=== PATIENT | male | born 1935 | race Caucasian/White ===

== ENCOUNTER 2019-02-04 14:06 | Observation (INO) | payer SELFPAY ==
[2019-02-04 14:13] VITALS: BP 124/82; PULSE 63; RESP 25; TEMP 36.5; O2SAT 93; BMI 27.8
[2019-02-04 15:00] VITALS: BP 120/79; PULSE 60; RESP 19; O2SAT 94
[2019-02-04] MEDS: BACITRACIN OINT 0.9 GM PCKT 4 APPLIC TOP (15:01)
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
--- NOTE | 2019-02-04 15:41 | DI.CT.S_ITS ---
PROCEDURE: CT HEAD/BRAIN WO CON INDICATIONS: trauma/fall TECHNIQUE: Noncontrast 4.5 mm thick angled axial sections acquired from the foramen magnum to the vertex, with coronal and sagittal reformats. For radiation dose reduction, the following was used: automated exposure control, adjustment of mA and/or kV according to patient size. COMPARISON: None. FINDINGS: Image quality: Excellent. CSF spaces: Basal cisterns are patent. No extra-axial fluid collections. The ventricles are symmetric in size and shape. Brain: No intracranial bleeds or masses. Moderate sized chronic left middle through artery distribution infarcts are present. Small chronic left cerebellar infarct is present. There is Wallerian degeneration of the left cerebral peduncle. There is cerebral volume loss for age, with resultant ventricular and sulcal prominence. There are periventricular and deep white matter chronic small vessel ischemic changes. There is intracranial internal carotid artery atherosclerosis. Skull and face: Calvarium and visualized facial bones appear intact, without suspicious lesions. Sinuses: Visualized sinuses and mastoids are clear. IMPRESSION: 1. No acute intracranial abnormality. 2. Chronic left-sided infarcts. Dictated by: Hazel Morton M.D. on 02/04/2019 at 16:24 Approved by: Hazel Morton M.D. on 02/04/2019 at 16:26
--- NOTE | 2019-02-04 15:41 | DI.RAD.S_ITS ---
PROCEDURE: XR HIP W PEL IF DONE LT 2V INDICATIONS: truama, bruise/pain to Left hip TECHNIQUE: AP pelvis with lateral view(s) of the left hip(s). COMPARISON: None. FINDINGS: Bones: No fractures or dislocations. Pelvic ring appears intact. No suspicious bony lesions. Mild joint space narrowing and periarticular osteophyte formation at the hip joints bilaterally. Soft tissues: The visualized bowel gas pattern is normal. No suspicious soft tissue calcifications. IMPRESSION: 1. Bilateral posterior arthritis. 2. No acute fracture. No osseous lesion. If symptoms and/or clinical suspicion for pathology persist, further assessment with repeat, or advanced imaging (e.g., CT, MRI, or bone scan) may be helpful for further assessment. Dictated by: Hazel Morton M.D. on 02/04/2019 at 16:44 Approved by: Hazel Morton M.D. on 02/04/2019 at 16:45
--- NOTE | 2019-02-04 15:44 | DI.CT.S_ITS ---
PROCEDURE: CT CERVICAL SPINE WO CON INDICATIONS: trauma/fall TECHNIQUE: Noncontrast 3 mm thick sections acquired from the skull base to the T4 level. Sagittal and coronal reformats were then constructed. For radiation dose reduction, the following was used: automated exposure control, adjustment of mA and/or kV according to patient size. COMPARISON: None. FINDINGS: Image quality: Excellent. Bones: No fractures or dislocations. Visualized superior ribs are intact. Multilevel degenerative disc and facet disease is present. Soft tissues: Prevertebral soft tissues are normal in thickness. No paravertebral hematomas. No apical pneumothoraces. Small right pleural effusion. IMPRESSION: 1. No fracture. 2. Multilevel degenerative disc and facet disease. 3. Right pleural effusion. Dictated by: Hazel Morton M.D. on 02/04/2019 at 16:28 Approved by: Hazel Morton M.D. on 02/04/2019 at 16:29
[2019-02-04 16:02] LABS: Add Manual Diff / Slide Review NO; Basophils Absolute Auto 100 /uL (0-100); Basophils Percent Auto 1.3 % (0-2); Eosinophils Absolute Auto 100 /uL (0-450); Hematocrit 38.1 % (41-53); Hemoglobin 12.6 g/dL (13.5-17.5); Lymphocytes Absolute Auto 600 /uL (1100-4500); Lymphocytes Percent Auto 14.2 % (25-40); Mean Corpuscular Hemoglobin 33.9 PG (26-34); Mean Corpuscular Volume 102.7 fL (80-100); Monocytes Absolute Auto 400 /uL (0-900); Monocytes Percent Auto 10.4 % (3-14); Neutrophils Absolute Auto 3100 /uL (1500-7000); Neutrophils Percent Auto 72.1 % (50-75); Platelet Count 78 X10^3/uL (150-400); Red Blood Cell Count 3.71 X10^6/uL (4.5-5.9); Red Cell Distribution Width 15.1 % (11.6-14.8); White Blood Cell Count 4.3 X10^3/uL (4.5-11.0)
[2019-02-04 16:20] LABS: Alanine Aminotransferase 24 IU/L (<50); Albumin 3.6 g/dL (3.5-5.0); Albumin Globulin Ratio 1.4 (1.0-2.8); Alkaline Phosphatase 102 U/L (38-126); Aspartate Aminotransferase 31 IU/L (17-59); BUN Creatinine Ratio 20.4 (6-22); Bilirubin Total 2.3 mg/dL (0.2-1.3); Blood Urea Nitrogen 51 mg/dL (9-20); Carbon Dioxide 26 mmol/L (22-32); Chloride 109 mmol/L (98-107); Estimated Glomerular Filt Rate 24.8 mL/min (>60); Globulin 2.5 g/dL (1.7-4.1); Glucose 82 mg/dL (80-110); HEMOLYSIS 19 (0-50); Potassium 4.8 mmol/L (3.4-5.1); Sodium 144 mmol/L (137-145); Total Protein 6.1 g/dL (6.3-8.2)
--- NOTE | 2019-02-04 16:46 | PC.NURSE ---
multiple attempts to contact pt's friend Nelly unable to reach her at [phone], the phone number pt provided. attempted to reach melecio who is on pt's contacts, no answer at that phone number.
--- NOTE | 2019-02-04 17:08 | PC.NURSE ---
pt refusing to stay on stretcher. found pt out of bed, he pulled off his cardiac leads, and was trying to get dressed. pt speaking with Nelly on phone, pt states you got to get me out of this hospital. pt state her Nelly, they stook me in this big machine then states please call me all the time because i cant remember your name, your number.
--- NOTE | 2019-02-04 17:16 | DI.RAD.S_ITS ---
PROCEDURE: XR CHEST 1V INDICATIONS: right pleural effusion TECHNIQUE: One view of the chest was acquired. COMPARISON: None. FINDINGS: Surgical changes and devices: None. Lungs and pleura: Diffuse interstitial prominence and loss of vascular distinctness. Small bilateral pleural effusions greater on the right. No pneumothorax. Patchy bibasilar opacities greater on the left. Mediastinum: Mediastinal contours appear normal. Heart size appears at the upper limits of normal. Bones and chest wall: No suspicious bony lesions. Overlying soft tissues appear unremarkable. IMPRESSION: Findings consistent with pulmonary edema. An infectious/inflammatory process not excluded. Dictated by: Estuardo Sahu M.D. on 02/04/2019 at 18:10 Approved by: Estuardo Sahu M.D. on 02/04/2019 at 18:12
[2019-02-04] MEDS: LORazepam 2 MG/ML INJ 0.5 MG IV ×2 (17:35→19:15)
[2019-02-04] MEDS: LIDOCAINE 2% INJ MDV 20 ML INJ (17:35)
[2019-02-04 17:48] VITALS: BP 123/80; PULSE 59; RESP 16; O2SAT 95
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
--- NOTE | 2019-02-04 18:02 | PC.NURSE ---
Nelly'martina phone number [phone]
[2019-02-04 20:02] VITALS: BMI 27.8
--- NOTE | 2019-02-04 21:13 | PC.NURSE ---
Patient refuse vitals
--- NOTE | 2019-02-04 21:24 | PC.NURSE ---
admit pt admitted from ED to AC just before 1999. Pt refusing VS check or auscultation of lungs/heart/bowels. continuously asks for warm blankets even when multiple are supplied. pain noted to left hip with transfer from stretcher to bed via slider board. pt was able to identify need to void and was assisted with urinal. at 210 pt abruptly sat up in bed I need to get dressed. I'm going home. reoriented pt to location/situation. the fact that pt lives on [facility] and would be unable to get a ferry home convinced him to stay well i'm leaving in the morning then. Pt without signs/symptoms of distress. in room visible from nurses station with bed alarm on.
--- NOTE | 2019-02-04 21:47 | PM.HP.1 ---
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 The rest of patient's history is unknown. According to the note from the ED records have been requested from [facility], where patient was admitted at some point earlier in the year. There are no other records available for review. His PCP is Camilo Santacruz. ED note was reviewed. Patient presented to the ED to be evaluated after a ground level fall due to a slip/fall event. Patient presented to the ED via EMS. In ED patient was noted to have a laceration that was repaired with yang. He had a CT of the head that was negative. He had CT of the cervical spine that revealed multilevel degenerative disc disease. No acute fractures noted. Hip x-ray revealed bilateral posterior arthritis. No acute fractures. It is noted that patient has complained of some abdominal tenderness pelvic bruising was noted. CT of cervical spine revealed pleural effusion. And for this reason chest x-ray was ordered, which was concerning for pulmonary edema. Patient is known to have been hospitalized at [facility] with heart failure 3 months ago. It is noted that he takes Lasix. However, this medication is not on his home med list. Patient has a social situation. He resides on [address] with his domestic partner Nelly Ogden, who has recently transitioned to be patients caregiver. Patient is to another individual who according to the notes refuses to give him a divorce. It was communicated to me by the nursing staff that Nelly is in the process of leaving the patient. Patient is noted to be increasingly more anxious and agitated. This is noted to be consistent w/ patietn's behavior with increasing stressors. One month ago patient had his house foreclosed. According to the ED note, Nelly does not want patient to come back home and feels that she cannot take care of him. Patient is admitted for suspected AKA, pulmonary edema, and recurrent falls. It is noted that patient has had a fall earlier in the day today. Not entirely clear if his falls have been recurrent. Patient reports ambulating with a walking stick. Patient himself is minimally cooperative. He does not wish to partake in HPI. He specifically notes of being falsely admitted to the hospital. He feels as if he is imprisoned. He verbalizes that he does not wish to be here, but will stay until the morning. He wishes to be left alone. He does not wish to be touched. He is not allowing vital signs to be carried out. He does not allow application of the SCDs. He does not wish to engage with the nursing staff or have any other care provided. Patient is calm, in bed, in the position, with his eyes closed and wrapped in blankets. He does not open eyes when being spoken to, he does respond appropriately to limited number or questions. If he is touched, he has a sudden change in behavior, he becomes explosive and belligerent. ED presentation and workup VS, 02/04 1413. T 97.7 BP 124/82 HR 63 RR 25 SpO2 93% on RA Vital sign trend reviewed through ED stay. Patient remained afebrile. Heart rate remained in the 60s. Respiratory rate improved and was ranging 16-19. BP remained stable. Labs 02/04/19, 1550 WBC 4.3 Hgb 12.6 Hct 38.1 MCV 102.7 Plt 78 Na 144 K 4.8 Cl 109 Ca 9.0 Alb 3.6 Glu 82 CO2 26 BUN 51 Cr 2.5 GFR 24.8 BUN 20.4 T.Bili 2.3 AST 31 ALT 24 Alk Phos 102 XR Chest. Diffuse interstitial prominence and loss of vascular distinctness. Small bilateral pleural effusions greater on the right. No pneumothorax. Patchy bibasilar opacities greater on the left. Heart size appears at the upper limits of normal. XR Hip. Bilateral posterior arthritis. No acute fracture. No osseous lesion. CT HEAD. No acute intracranial abnormality. Chronic left sided infarcts. CT Cervical Spine.No fracture. Multilevel degenerative disc and facet disease. Small right pleural effusion. Patient History Family & Social History Social History: household members significant other Prior Living Arrangements House Safety & Behavioral: Feels Safe in Current Yes Environment Been Physically Hurt or No Threatened By a Person Tobacco & Substance use: Smoking Status Smoker, status unknown Substance Use Type unknown Meds Home Medications and Allergies Home Medications Medication Instructions Recorded Confirmed Type atorvastatin 80 mg PO DAILY 02/04/19 02/04/19 History carvedilol 6.25 mg PO BID 02/04/19 02/04/19 History citalopram 10 mg PO DAILY 02/04/19 02/04/19 History lorazepam 0.5 mg PO BID 02/04/19 02/04/19 History zolpidem 10 mg PO BEDTIME 02/04/19 02/04/19 History Allergies Allergy/AdvReac Type Severity Reaction Status Date / Time citalopram AdvReac Intermediate Verified 02/04/19 16:08 megestrol [From Megace] AdvReac Intermediate Diarrhea Verified 02/04/19 16:08 Review of Systems Review of Systems ROS Unobtainable: other (Unable to obtain, patient refuses to provide) Exam Vital Signs (past 8 hours): - 02/04/19 14:13 02/04/19 15:00 02/04/19 17:48 Temperature 97.7 F Pulse Rate 63 60 59 L Respiratory Rate 25 H 19 16 Blood Pressure 124/82 Blood Pressure [Left Arm] 120/79 123/80 Pulse Oximetry 93 94 95 Oxygen Delivery Method Room Air Narrative Exam Narrative: Unable to fully assess patient, patient refuses to be assessed Patient is seen at bedside. Frail in appearance. BMI 26.8. He is easily arousable to verbal stimuli. He does not appear to be in any respiratory distress. He does not complain are appeared to be in pain. Patient's speech is clear. Answers questions appropriately. He is aware that he is in the hospital. He is able to state proper month and year. He denies chest pain and palpitations. He denies abdominal pain and GI distress. He does exhibit somewhat irregular breathing pattern. He is on room air. No edema noted. He is also very hard of hearing. No unilateral weakness noted. No facial asymmetry observed. Somewhat agitated. Expresses little desire to communicate. Verbalized that he does not wish to be touched. He becomes belligerent with any touch. Objective Labs Result Diagrams: 02/04/19 15:50 02/04/19 15:50 Labs: Laboratory Results - last 24 hr 02/04/19 02/04/19 15:50 15:50 WBC 4.3 L RBC 3.71 L Hgb 12.6 L Hct 38.1 L MCV 102.7 H MCH 33.9 MCHC 33.0 RDW 15.1 H Plt Count 78 L Neut % (Auto) 72.1 Lymph % (Auto) 14.2 L [place] % (Auto) 10.4 Eos % (Auto) 2.0 Baso % (Auto) 1.3 Neut # (Auto) 3100 Lymph # (Auto) 600 L [place] # (Auto) 400 Eos # (Auto) 100 Baso # (Auto) 100 Sodium 144 Potassium 4.8 Chloride 109 H Carbon Dioxide 26 BUN 51 H Creatinine 2.50 H Estimated GFR 24.8 L BUN/Creatinine Ratio 20.4 Glucose 82 Calcium 9.0 Total Bilirubin 2.3 H AST 31 ALT 24 Alkaline Phosphatase 102 Total Protein 6.1 L Albumin 3.6 Globulin 2.5 Albumin/Globulin Ratio 1.4 Assessment & Plan Assessment & Plan narrative: Patient is admitted for suspected NORBERT, dehydration, and recurrent falls. Patient's history is not known and no other records available for review. This is partially social admit as patient is unable to care for self. There is some type of discourse between him and his caregiver. Renal insufficiency, acute vs chronic, present on admission, active - Patient is in her diuretic and hypotensive, suspect acute renal insufficiency superimposed on CKD. Need for the records to review. - Patient is on a diuretic - will hold off on further hydration on lieu of the findings on the chest x-ray, interstitial prominence and small bilateral pleural effusions (possibly chronic) - Continue to monitor patient closely. Is not exhibiting respiratory distress at this time. Pulmonary edema, acute, present on admission XR Chest. Diffuse interstitial prominence and loss of vascular distinctness. Small bilateral pleural effusions greater on the right. No pneumothorax. Patchy bibasilar opacities greater on the left. Heart size appears at the upper limits of normal. - h/o ICM and HF - does not appear to be in overt respiratory distress, does not allow VS to be checked, he was not hypoxic in ED - hold off on IVF - monitor patient closely Head injury w/ head laceration w/o concussion or intracranial hemorrhage, acute present on admission, active - CT HEAD negative for acute pathology - GCS 14-15. He is NOT entirely confused, he may be forgetful and he is also very hard of hearing. - Not on anti thrombotic so anticoagulation. Thrombocytopenic - Head laceration was repaired in ED - Monitor neuro status q.4 hours Thrombocytopenia, suspected to be chronic, present on admission, active - Plt 78. Cause is not known - Trend w/ routine lab Fall from ground level w/ injury to the head, acute, present on admission - fall precautions Ischemic cardiomyopathy, chronic condition, present on admission, active - Exhibits breathing that is somewhat irregular while conversing, but not appear dyspnea or to be gasping for air - Continue carvedilol - He does not appear to be volume overload on appearance; however the CXR does suggest pulmonary edema Agitation, acute vs chronic, present on admission, active - Patient is not cooperative. He becomes easily. Declines participation in proposed interventions. Dyslipidemia, chronic condition, present on admission, active - resume [employer] dose of atorvastatin Falls, acute vs recurrent, present on admission, active - CT of the head was negative for acute findings. Patient does have thrombocytopenia. - monitor neuro status as patient allows - fall precautions Inability to care for self, acute, present on admission, active - consult social work Patient is clearly unhappy in regard to his in-patient admission. He is not disoriented. He states that he is being held in the hospital as a prisoner. It was communicated to the patient that he is free to leave at any time and is not being held against his will. However, it is also too late in the day and he chooses to stay overnight. Discharge planners and morning provider will need to discuss patient's disposition in the morning. Code status reviewed with patient. He wishes to be DNR. Designates Nelly and his children as proxy healthcare decision makers. VTE prophylaxis with SCDs, which he refuses Home medications reviewed and reconciled accordingly. Quality VTE Deep Vein Thrombosis/Pulmonary Embolism Present on Admission: No
--- NOTE | 2019-02-05 00:12 | PC.NURSE ---
Patient will not allow vital signs, assessments of any kind. He agreed to let me listen to his lungs, and when I was doing this he became very agitated and screamed what are you doing? Leave me alone, I don't want you to do that. No diet orders, got verbal permission may have sips of water per hospitalist Syd. Patient is courteous with requests, and thanks me for warm blankets. Does not use his call light, but will call out Maam. Uses the urinal with help. Requested water to drink. Given. No difficulties in swallowing, used a straw.
[2019-02-05 01:11] VITALS: BP 114/64; PULSE 72; RESP 17; O2SAT 96
--- NOTE | 2019-02-05 04:21 | PC.NURSE ---
Patient did not stop me from checking pedal pulses and checking for pedal edema. These tasks were done while recovering patient with another warm blanket and keeping his feet warm. No edema and positive pedal pulses.
[2019-02-05 05:45] LABS: Add Manual Diff / Slide Review NO; Basophils Absolute Auto 100 /uL (0-100); Basophils Percent Auto 1.3 % (0-2); Eosinophils Absolute Auto 100 /uL (0-450); Eosinophils Percent Auto 3.2 % (2-4); Hematocrit 35.8 % (41-53); Hemoglobin 11.8 g/dL (13.5-17.5); Lymphocytes Absolute Auto 800 /uL (1100-4500); Lymphocytes Percent Auto 17.6 % (25-40); Mean Corpuscular Hemoglobin 33.7 PG (26-34); Mean Corpuscular Volume 102.1 fL (80-100); Monocytes Absolute Auto 500 /uL (0-900); Monocytes Percent Auto 11.8 % (3-14); Neutrophils Absolute Auto 3000 /uL (1500-7000); Neutrophils Percent Auto 66.1 % (50-75); Platelet Count 77 X10^3/uL (150-400); Red Blood Cell Count 3.51 X10^6/uL (4.5-5.9); Red Cell Distribution Width 14.9 % (11.6-14.8); White Blood Cell Count 4.5 X10^3/uL (4.5-11.0)
[2019-02-05 05:46] LABS: INR 1.3 (0.9-1.3); Prothrombin Time 15.6 SECONDS (10.1-12.7)
[2019-02-05 05:50] LABS: Alanine Aminotransferase 20 IU/L (<50); Albumin 3.2 g/dL (3.5-5.0); Albumin Globulin Ratio 1.3 (1.0-2.8); Alkaline Phosphatase 82 U/L (38-126); Aspartate Aminotransferase 21 IU/L (17-59); BUN Creatinine Ratio 18.4 (6-22); Bilirubin Total 2.3 mg/dL (0.2-1.3); Blood Urea Nitrogen 46 mg/dL (9-20); Calcium 8.7 mg/dL (8.4-10.2); Carbon Dioxide 26 mmol/L (22-32); Chloride 110 mmol/L (98-107); Estimated Glomerular Filt Rate 24.8 mL/min (>60); Globulin 2.4 g/dL (1.7-4.1); Glucose 101 mg/dL (80-110); HEMOLYSIS < 15 (0-50); Potassium 4.3 mmol/L (3.4-5.1); Sodium 140 mmol/L (137-145); Total Protein 5.6 g/dL (6.3-8.2)
--- NOTE | 2019-02-05 06:36 | PC.NURSE ---
Patient got out of bed stood at bedside. I rushed in when alarm went off. Was able to stabilize patient by hoding on to his gown tightly on the back. Had my arm around his front. Patient non compliant screaming for oranges, stating he was not in this play anymore. Would not be seated. Able to call for assistance via [employer]. ..Adamantly refusing to sit on the bed. Finally able to get him seated, would not lie back in bed. Brought in staff to sit with patient while I got recliner chair. Patient finally relented and was seated in recliner with feet up, and warm blankets. Sitter in room at chairside, and I am directly outside his room, which is glass doored. No alarm able to be placed due to his safety.
[2019-02-05 07:55] VITALS: BP 125/78; PULSE 67; RESP 16; O2SAT 96
[2019-02-05 08:25] VITALS: BP 125/78
[2019-02-05] MEDS: CITALOPRAM 10 MG TABLET PO (08:25)
[2019-02-05] MEDS: carvediloL 6.25 MG TABLET PO (08:25)
[2019-02-05 11:07] VITALS: BP 114/71; PULSE 64; RESP 17; TEMP 36.6; O2SAT 96
--- NOTE | 2019-02-05 12:59 | PT.IIE ---
Physical Therapy Inpatient Evaluation/Re-Eval M1 PT/OT-IP Prior Functional Status Start: 02/05/19 14:37 Freq: NEEDED Status: Active Protocol: Document 02/05/19 12:59 AB (Rec: 02/05/19 14:53 AB [email or web address]) Medical Review Prior Functional Status Medical History Reviewed Yes Communication able to make needs known Mobility and Gait pt stated that he is modified independent with all mobilities and ambulation without AD but occasionally uses a SPC Social History Household Members significant other Living Arrangements House Number of Floors (Floors) Two Floors Number of Stairs To Enter/Railing? pt stays on main level of the house has 3 steps to enter with R rail ascending Home Environment Standard Height Toilet,Walk in Shower Home Equipment Straight Cane Additional Social History Comment pt lives at [facility]. M2 PT-IP Current Condition Start: 02/05/19 14:37 Freq: NEEDED Status: Active Protocol: Document 02/05/19 12:59 AB (Rec: 02/05/19 14:53 AB [email or web address]) Physical Therapy Current Condition Current Condition Evaluation Date 02/05/19 Treatment Diagnosis pleural effusion; GLF with laceration; difficulty in walking Onset Date 02/04/19 Precautions Other Precautions falls M3 PT-IP Subjective Start: 02/05/19 14:37 Freq: NEEDED Status: Active Protocol: Document 02/05/19 12:59 AB (Rec: 02/05/19 14:53 AB [email or web address]) Subjective Physical Therapy Visit Type Type Initial Evaluation Visit Start Time 12:59 Visit Stop Time 13:37 Total Visit Minutes 38 Number of AQUEDUCT AND RESERVOIR KEEPER Visits 0 Physical Therapy Visit Comments Patient Comments pt agreeable to do PT Therapy Pain Assessment Pain Present Pain Present Denied Pain M4 PT-IP Mobility and Gait Start: 02/05/19 14:37 Freq: NEEDED Status: Active Protocol: Document 02/05/19 12:59 AB (Rec: 02/05/19 14:53 AB [email or web address]) PT-Bed Mobility Assessment Sit to Supine Sit to Supine Standby Assistance PT-Transfer Assessment Sit to and From Stand Sit to and from Stand Contact Guard Assistance,1 Person Assistance,Use of Upper Extremities Equipment Transfer Assistive Device Gait Belt Orthotic/Prosthetic Devices or Brace: No Transfers Transfer Destination Chair Transfer Technique ambulated using FWW/without AD Transfer Ability Level of Assist Contact Guard Assistance, Minimal Assistance,1 Person Assistance Comments Mobility Comments pt completed supine to sit SBA . was able to sit on EOB SBA. completed sit to stand CGA. initially ambulated in room using FWW CGA but pt let go of the FWW and started ambulating without AD requiring min A and cues. pt is impulsive and has decrease safety awareness. completed ambulation using SPC and also completed up/down step stool with R rail. Left pt with OT. Gait Assessment Gait Gait Assistance Required: Contact Guard Assist,Minimum Assistance Distance (Feet) 30 Able to Maintain Weight Bearing Status Yes During Gait Assistive Devices Assistive Device None,Gait Belt,Straight Cane, Front Wheeled Walker Orthotic/Prosthetic Devices or Brace: No Gait Deviations General Gait Pattern Antalgic,Decreased Stride Length,Decreased Feet Clearance Factors Limiting Gait Function Factors Limiting Gait Function Decreased Activity Tolerance, Decreased Strength,Difficulty Following Directions,Poor Balance,Poor Safety Awareness Comments Gait Comments completed ambulation in room using FWW ~ 20 ft CGA and pt let go of his FWW and ambulated without AD requiring min A and cues ~ 15ft. presents with unsteady gait. pt educated on safety and recommendation of use of FWW. pt understood. Assessed ambulation further using a SPC and pt completed ~ 30 ft requiring CGA and cues. Stair Climbing Assessment Evaluation Level of Assist On Stairs Moderate Assistance Devices Stair Climbing Assistive Devices Right Railing Technique/Endurance Stair Climbing Direction Ascend and Descend Stair Climbing Technique Step to Step Number of Steps Climbed 1 Query Text: Stair Climbing Set # Repetitions (reps) 1 Comments Stair Climbing Comments requiring mod A with up/down steps with uncontrolled descent requiring mod A and cues. PT-Balance Assessment Sitting Balance and Reactions Static Sitting Balance Ability Good Dynamic Sitting Balance Ability Good Standing Balance and Reactions Static Standing Balance Ability Fair Dynamic Standing Balance Ability Fair Device Used FWW M5 PT-IP Objective Assessments Start: 02/05/19 14:37 Freq: NEEDED Status: Active Protocol: Document 02/05/19 12:59 AB (Rec: 02/05/19 14:53 AB [email or web address]) Orientation Orientation/Cognition Level of Alertness Alert Orientation Name Language Function Ability Hard of Hearing Safety Awareness Decreased Safety Awareness Gross Range of Motion Lower Extremity ROM Assessment Within Functional Limits Strength Lower Extremity Strength Hip 4-/5 Knee 4-/5 Muscle Tone Muscle Tone WNL Yes M6 PT-IP Treatment Start: 02/05/19 14:37 Freq: NEEDED Status: Active Protocol: Document 02/05/19 12:59 AB (Rec: 02/05/19 14:53 AB [email or web address]) Physical Therapy Treatment Education Education Provided Safety M7 PT-IP Assessment and Plan Start: 02/05/19 14:37 Freq: NEEDED Status: Active Protocol: Document 02/05/19 12:59 AB (Rec: 02/05/19 14:53 AB [email or web address]) PT Summary Assessment and Plan Potential Rehabilitation Potential Fair Status of Condition at Evaluation Stable Summary Impairments Pain,ROM,Strength,Balance, Coordination,Sensation,Tone, Cognition,Bed Mobility, Transfers,Gait,Activity Tolerance Assessment Summary pt requiring CGA with ambulation using SPC but requires min A without AD and presents with unsteady gait. pt requires mod A with up/down steps using R rail. d/c plan depending if significant other will be able to assist pt safely at home. pt agreed to get a FWW from the [facility] in [facility]. Goals Bed Mobility Goal Independent Transfer Goal Independent,Cane,Front Wheeled Walker Gait Goal Standby Assistance,Cane,Front Wheel Walker Gait Distance 200 Other Goals up/down 3 steps with R rail SBA Days to Meet Goals 5 Frequency of Treatment Frequency Of Treatment Once a Day Treatment Plan Physical Therapy Treatment Plan Bed Mobility Training,Transfer Training,Gait Training, Therapeutic Exercise,Balance Retraining,Discharge Planning, Neuromuscular Re-ed, Coordination Retraining Other Recommendations and Next Treatment ambulation, stair climbing, Focus caregiver training when appropriate Recommendations To Nursing Amount of Assist Needed 1 Person Assist Discharge Recommendations PT Discharge Recommendations Home with 23/09 Assist,Home Health Equipment Needed for Home Before FWW Discharge
--- NOTE | 2019-02-05 13:00 | OT.IP.EVAL ---
Occupational Therapy Inpatient Evaluation/Re-Eval M1 PT/OT-IP Prior Functional Status Start: 02/05/19 15:01 Freq: NEEDED Status: Active Protocol: Document 02/05/19 13:00 [facility] (Rec: 02/05/19 15:20 [facility] [id number]) Medical Review Prior Functional Status Medical History Reviewed Yes Communication able to make needs known Mobility and Gait pt stated that he is modified independent with all mobilities and ambulation without AD but occasionally uses a SPC Activities of Daily Living and IADL's Pt states at times has hard time to kay his socks and shoes. Pt states donns his left leg into pants while standing and then sits to get right leg in. Social History Household Members significant other Living Arrangements House Number of Floors (Floors) Two Floors Number of Stairs To Enter/Railing? pt stays on main level of the house has 3 steps to enter with R rail ascending Home Environment Standard Height Toilet,Walk in Shower Home Equipment Straight Cane Additional Social History Comment pt lives at [facility]. M2 OT-IP Current Condition Start: 02/05/19 15:01 Freq: Status: Active Protocol: Document 02/05/19 13:00 [facility] (Rec: 02/05/19 15:20 [facility] [id number]) Occupational Therapy Current Condition Current Condition Evaluation Date 02/05/19 Treatment Diagnosis GLF with lacerations, right pleural effusion, decreased balance Diagnosis Onset Date 02/04/19 Weight Bearing Status Weight Bearing Status Weight Bear as Tolerated M3 OT- IP Subjective and Pain Start: 02/05/19 15:01 Freq: Status: Active Protocol: Document 02/05/19 13:00 [facility] (Rec: 02/05/19 15:20 [facility] [id number]) OT- Subjective Occupational Therapy Visit Type Type Initial Evaluation Visit Start Time 13:00 Visit Stop Time 13:45 Total Visit Minutes 45 Occupational Therapy Visit Comments Patient Comments Pt cooperative and agreeable for Ot/Pt eval. Patient/Caregiver Goals Pt wanting to go home. OT Pain Assessment Pain When Pain Assessed At Rest Pain Present Pain Present Pain Reported M4 OT- IP ADL's Start: 02/05/19 15:01 Freq: Status: Active Protocol: Document 02/05/19 13:00 [facility] (Rec: 02/05/19 15:20 [facility] [id number]) OT [facility] Comments OT Self-Feeding Comments Not at meal time. OT ADL-Grooming General Evaluation Grooming Ability Standby Assistance Areas Needing Assistance Retrieving/Set-up of Grooming Items Comments OT Grooming Comments Pt able to do while standing with FWW to sink. Just needing assist for set-up to get toothbrush out of the platic wrap. OT ADL-Oral Care General Eval Oral Care Ability Independent OT ADL-Dressing General Eval Lower Body Dressing Ability Contact Guard Assistance Comments OT Dressing Comments Pt needing CGA for balance while getting his leg up onto the bed in order to kay/doff his socks. Educated best to sit down in order to get his pants on. OT ADL-Toileting General Evaluation Toileting Ability Minimal Assistance Areas Needing Assistance Perform Perineal Hygiene Devices Toileting Assistive Devices Grab Bars Comments OT Toileting Comments Pt needng vc to wipe for completeness and as pt tired needing mateusz to help finish with his hygiene needs. OT ADL-Bathing Comments OT Bathing Comments Pt too tired to attempt showering at this time. M5 OT- IP IADL's Start: 02/05/19 15:01 Freq: Status: Active Protocol: Document 02/05/19 13:00 [facility] (Rec: 02/05/19 15:20 [facility] [id number]) OT-Instrumental Activities of Daily Living Medication Management Medication Management Caregiver Provides Supervision Money Management Money Management Caregiver Provides Supervision Meal Preparation Meal Preparation Caregiver Provides Assist Statistical Geneticist Statistical Geneticist Caregiver Provides Assist M6 OT- IP Functional Cognition Start: 02/05/19 15:01 Freq: Status: Active Protocol: Document 02/05/19 13:00 [facility] (Rec: 02/05/19 15:20 [facility] [id number]) Cognitive Factors Limiting Selfcare Function Cognitive Ability Level of Alertness Alert Patient Orientation Name,Place,Situation Attention Span Ability Capable of Focused Attention, Capable of Sustained Attention Ability to Follow Commands Able to Follow One Step Commands Memory Description Short Term Impaired Safety Awareness Underestimates Need for Assistance Problem Solving Ability Unable to Identify Errors, Needs Assist to Identify Solutions Cognitive Comments Cognitive Assessment Comments VC for FWW safety as trying to pull on the FWW to get up and not realizing that the FWW was falling over. Pt needing education for safety awareness as while initially walking with the FWW trying to walk without the FWW. Able to rationalize to pt that the FWW will be much safer then his SPC at this time. Pt a bit impulsive and needing simple concrete steps to follow. Pt also needing cues for completeness to wipe after a bowel movement. OT- Vision and Hearing OT- Hearing Assessment OT- Hearing Assessment WFL OT- Vision Assessment Vision Assessment Comments Pt keeps left eye closed as states sees double if both eyes open. When asking pt to open his left eye, left eye gazes to the left. M7 OT- IP Mobility and Balance Start: 02/05/19 15:01 Freq: Status: Active Protocol: Document 02/05/19 13:00 [facility] (Rec: 02/05/19 15:20 [facility] [id number]) OT- Bed Mobility Assessment Rolling Type of Rolling Roll to Left Level of Assistance Standby Assistance Supine to Sit Supine to Sit Assist Standby Assistance OT-Transfer Assessment Sit to and From Stand Sit to and from Stand Contact Guard Assistance Transfers Transfer Ability Contact Guard Assistance, Minimal Assistance Technique Transfer Destination Bed,Chair,Toilet Transfer Technique Stand Step Pivot Devices Transfer Assistive Devices None,Gait Belt,Straight Cane, Front Wheeled Walker Comments Mobility Comments Pt in the safest with fww and states [facility] [facility] [address]. Pt needign MATEUSZ without use of any device and CGASBA with FWW at this time as leans to the right at time. pt on RA and O2 level from 89- 94%, pt does admit to being a little SOB. OT- Balance Assessment Sitting Balance and Reactions Static Sitting Balance Ability Good Dynamic Sitting Balance Ability Fair Standing Balance and Reactions Static Standing Balance Ability Fair M8 OT- IP Objective Assessments Start: 02/05/19 15:01 Freq: Status: Active Protocol: Document 02/05/19 13:00 [facility] (Rec: 02/05/19 15:20 [facility] [id number]) OT Gross Range of Motion Upper Extremity Range of Motion Assessment Bilaterally Impaired ROM Impairments REU shoulder flexion 0-100, LUE 0-105 shoulder flexion OT Strength Comments Strength Comments BUE 4/5 OT- Coordination Assessment Comments Coordination Comments Decreased opening items for self -care. Mild arthritic changes in hands. OT-Muscle Tone Assessment Muscle Tone WNL Yes M9 OT- IP Assessment and Plan Start: 02/05/19 15:01 Freq: Status: Active Protocol: Document 02/05/19 13:00 [facility] (Rec: 02/05/19 15:20 [facility] [id number]) OT Summary Assessment and Plan Potential Rehabilitation Potential Good Analytic Complexity at Evaluation Low Summary OT Impairments Strength,Balance,Functional Cognition,Functional Mobility, Grooming,Dressing,Toileting, Bathing,Toilet Transfers, Shower Transfers Progress Towards Goals Slow Progress due to Activity Tolerance,Slow Progress due to Cognition Assessment Summary Pt low complexity and main barriers are steps, decreased activity tolerance, safety awareness and now needing MATEUSZ for mobility and ADL needs. Pt appears close to baseline level but would benefit from home health and assist at home / at this time due decreased safety awareness, balance, and activity tolerance. Goals Grooming Goal Independent Dressing Goal Standby Assistance Toileting Goal Standby Assistance Bathing Goal Standby Assistance Toilet Transfer Goal Standby Assistance Shower Transfer Goal Contact Guard Assistance Patient/Caregiver Education Goal Caregiver Independent Assisting Patient Days to Meet Goals 5 Frequency of Treatment Frequency Of Treatment Once a Day Treatment Plan OT Treatment Plan ADL Training,Functional Cognition Training,Functional Mobility,Patient/Family Education,Discharge Planning Other Treatment Recommendations and Next shower Treatment Focus Discharge Recommendations OT Discharge Recommendations Home with 23/09 Assist,Home Health Home Equipment Needs shower chair, FWW
--- NOTE | 2019-02-05 14:57 | CM.DPNOTE ---
Initial D/C Planning Note. DRY CLIPPER TENDER reviewed chart and consulted with pt's assigned RN. Payor: Medicare Part A only. PCP: Dr. Santacruz/Javier Colón. Pt presented to the ED yesterday evening after sustaining a ground level fall, non-injurious, he was noted to have a head laceration, however his CT was negative. He resides with his cg/significant other, Nelly, who plans to continue to reside with him and provide for his care needs. Multiple social concerns were noted by the inpt care team. Pt will need assistance in obtaining Medicare Part B; DRY CLIPPER TENDER provided [employer] information and explained to his cg the process of calling [employer] for assistance. He faces losing his housing, however doesn't qualify for Medicaid and has not made plans for alternate housing. 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 He remains to his , however they have been for some time, and she reportedly refuses to divorce him. Pt was cooperative during DRY CLIPPER TENDER interaction today, however it was noted by several inpt staff that he had been quite uncooperative and refused care throughout much of his stay. No barriers to d/c identified at this time. Plan is for his SO to drive him home later this afternoon post discharge. Discharge Planning/Care Management CM Discharge Assessment Start: 02/05/19 14:48 Freq: Status: Active Protocol: Document 02/05/19 14:48 [facility] (Rec: 02/05/19 14:57 [facility] [id number]) Discharge Planning Assessment Assigned Telephone Interviewer AGUIALR Coawrt DPOA/Assigned Designee Name N/A Advance Directives? Yes History Provided By Medical Record Expected Length of Stay 1 Has Patient been admitted in last 30 No days? Prior Living Arrangements House Household Members significant other Comment Pt is legally still , however has been from his for some time. It was reported to us that his home is actually owned by his , she has given him notice to cease living in this home, and it is now in the process of foreclosure. Pt's SO is his primary cg, states that she plans to continue in this role at this time. Type of transporation used prior to Relies on Others admit Comment Pt is not supposed to drive, however he is impulsive due to his TBI, and will drive himself at times against thte advice of his cg. Independent with ADL's Yes Is patient alert and oriented? Yes, confused at times. Caregiver for Another No Comment Pt's SO states that pt has had various caregivers at times, however he isn't connected to ongoing, consistent services. Comment N/A Comment Home with SO/CG. Barriers to Discharge No Discharge Plan Home Transportation Arrangement Pt's SO, Nelly, will drive him . Additional Comment Pt is declining in-home services.
--- NOTE | 2019-02-05 15:51 | PM.DS.1 ---
History of Present Illness History of Present Illness Date Patient Seen: 02/05/19 Chief complaint: GLF Lacerations Narrative: Written by Avery HENRIQUEZ: The patient is an 83-year-old male with PMHx of suspected TBI 2012, CVA (per head CT), ICM, HF, HLD, CKD, anxiety/depression w/ behavioral outbursts. The rest of patient's history is unknown. According to the note from the ED records have been requested from [facility], where patient was admitted at some point earlier in the year. There are no other records available for review. His PCP is Camilo Santacruz. ED note was reviewed. Patient presented to the ED to be evaluated after a ground level fall due to a slip/fall event. Patient presented to the ED via EMS. In ED patient was noted to have a laceration that was repaired with yang. He had a CT of the head that was negative. He had CT of the cervical spine that revealed multilevel degenerative disc disease. No acute fractures noted. Hip x-ray revealed bilateral posterior arthritis. No acute fractures. It is noted that patient has complained of some abdominal tenderness pelvic bruising was noted. CT of cervical spine revealed pleural effusion. And for this reason chest x-ray was ordered, which was concerning for pulmonary edema. Patient is known to have been hospitalized at [facility] with heart failure 3 months ago. It is noted that he takes Lasix. However, this medication is not on his home med list. Patient has a social situation. He resides on [facility] [facility] with his domestic partner Nelly Ogden, who has recently transitioned to be patients caregiver. Patient is to another individual who according to the notes refuses to give him a divorce. It was communicated to me by the nursing staff that Nelly is in the process of leaving the patient. Patient is noted to be increasingly more anxious and agitated. This is noted to be consistent w/ patietn's behavior with increasing stressors. One month ago patient had his house foreclosed. According to the ED note, Nelly does not want patient to come back home and feels that she cannot take care of him. Patient is admitted for suspected AKA, pulmonary edema, and recurrent falls. It is noted that patient has had a fall earlier in the day today. Not entirely clear if his falls have been recurrent. Patient reports ambulating with a walking stick. Patient himself is minimally cooperative. He does not wish to partake in HPI. He specifically notes of being falsely admitted to the hospital. He feels as if he is imprisoned. He verbalizes that he does not wish to be here, but will stay until the morning. He wishes to be left alone. He does not wish to be touched. He is not allowing vital signs to be carried out. He does not allow application of the SCDs. He does not wish to engage with the nursing staff or have any other care provided. Patient is calm, in bed, in the position, with his eyes closed and wrapped in blankets. He does not open eyes when being spoken to, he does respond appropriately to limited number or questions. If he is touched, he has a sudden change in behavior, he becomes explosive and belligerent. ED presentation and workup VS, 02/04 1413. T 97.7 BP 124/82 HR 63 RR 25 SpO2 93% on RA Vital sign trend reviewed through ED stay. Patient remained afebrile. Heart rate remained in the 60s. Respiratory rate improved and was ranging 16-19. BP remained stable. Labs 02/04/19, 1550 WBC 4.3 Hgb 12.6 Hct 38.1 MCV 102.7 Plt 78 Na 144 K 4.8 Cl 109 Ca 9.0 Alb 3.6 Glu 82 CO2 26 BUN 51 Cr 2.5 GFR 24.8 BUN 20.4 T.Bili 2.3 AST 31 ALT 24 Alk Phos 102 XR Chest. Diffuse interstitial prominence and loss of vascular distinctness. Small bilateral pleural effusions greater on the right. No pneumothorax. Patchy bibasilar opacities greater on the left. Heart size appears at the upper limits of normal. XR Hip. Bilateral posterior arthritis. No acute fracture. No osseous lesion. CT HEAD. No acute intracranial abnormality. Chronic left sided infarcts. CT Cervical Spine.No fracture. Multilevel degenerative disc and facet disease. Small right pleural effusion. Discharge Providers Provider Date of admission: 02/04/19 18:44 Discharge Date: 02/05/19 Primary care physician: Camilo Santacruz MD Consults: 02/05/19 00:33 Consult to Discharge Planning Routine Comment: 02/05/19 08:56 Consult to Occupational Therapy Evaluate & Treat Comment: Physician Instructions: Evaluate and treat Consult to Physical Therapy Evaluate & Treat Comment: Physician Instructions: Evaluate and Treat Discharge provider: Isabella Pinedo DO Summary Hospital Course Discharge Diagnosis: 1. Recurrent falls with head laceration and without concussion or intracranial hemorrhage, present on admission. Resolved. 2. Renal insufficiency, acute vs chronic, present on admission. Stable. 3. Ischemic cardiomyopathy, chronic, present on admission. Stable. 4. 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 Ongoing. 5. Thrombocytopenia, suspected to be chronic, present on admission, active 6. Inability to care for self, present on admission. Active. Hospital Course: 1. Recurrent falls with head laceration and without concussion or intracranial hemorrhage, present on admission. Resolved. -CT brain did not demonstrate any acute intracranial abnormality. -GCS 14-15. He is NOT entirely confused, he may be forgetful and he is also very hard of hearing. -Not on anti thrombotic or anticoagulation. The patient is thrombocytopenic and etiology unknown. -Head laceration was repaired in ED and yang will need removed in 7-10 days. -Monitored neuro status every 4 hours and patient is mentating normally per caregiver. -Continued fall precautions. 2. Renal insufficiency, acute vs chronic, present on admission. Stable. -Patient is on diuretic and possibly over diuresed. Suspect acute renal insufficiency superimposed on CKD. -Initial creatinine 2.5 and stable. Unclear baseline. Requested records but not obtained. -Patient is on a diuretic with furosemide but dose and frequency unknown. -Held off on IV fluid hydration on lieu of the findings on the chest x-ray, interstitial prominence and small bilateral pleural effusions likely chronic. -Continue to monitor patient closely. Is not exhibiting respiratory distress at this time. 3. Ischemic cardiomyopathy, chronic, present on admission. Stable. -Continued carvedilol 6.25 mg twice daily. -Exhibits breathing that is somewhat irregular while conversing, but does not appear dyspneic. He does not appear to be volume overload on appearance. He is reportedly on furosemide but dose and frequency unknown and ED provider thought that the patient may potentially be over diuresed. He was not hypoxemic in ED. Non-compliant with care initially and would not allow for VS to be checked. Chest x-ray demonstrated diffuse interstitial prominence and loss of vascular distinctness, small bilateral pleural effusions greater on the right, no pneumothorax, patchy bibasilar opacities greater on the left and heart size appears at the upper limits of normal. -Held off on IVF. -Continued to monitor patient closely. 4. 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 Ongoing. -Patient was not cooperative initially and becomes easily agitated under high stress situations. Declined participation in proposed interventions. Discharged home with caregiver. -Continued citalopram 10 mg daily and lorazepam 0.5 mg twice daily. 5. Thrombocytopenia, suspected to be chronic, present on admission, active -Platelet level 78 and stable. Cause is not known. -Continued to monitor. Dyslipidemia, chronic condition, present on admission, active -Continued home atorvastatin 80 mg daily. 6. Inability to care for self, present on admission. Active. -Patient has a complex social situation regarding his home which recently foreclosed and his caregiver potentially leaving. -Patient was clearly unhappy in regard to his observation admission per night time provider. He is not disoriented. He states that he is being held in the hospital as a prisoner. It was communicated to the patient that he is free to leave at any time and is not being held against his will. However, it was too late in the day and he chose to stay overnight. -Consulted social work and we appreciate their time and care of the patient. Exam Vital Signs (past 8 hours): - 02/05/19 07:55 02/05/19 08:25 02/05/19 11:07 Temperature 97.9 F Pulse Rate 67 64 Respiratory Rate 16 17 Blood Pressure 125/78 125/78 114/71 Pulse Oximetry 96 96 Oxygen Delivery Method Room Air Oxygen Flow Rate 0 Narrative Exam Narrative: General: Elderly male sitting in bed and in no acute distress, well-developed, well-nourished, TBI with affected gaze and behavioral disturbance, no longer irritable and appropriately interactive. HEENT: Normocephalic, atraumatic. External ears without defect. Pupils equal, round, and reactive to light. Anicteric sclerae and moist conjunctivae. Left lid lag and downward gaze. Neck: Supple with full range of motion. No jugular venous distension. No lymphadenopathy or thyromegaly. Cardiovascular: Regular rate and rhythm without murmurs, rubs, or gallops appreciated Pulmonary: Clear to auscultation bilaterally without crackles, wheezes, or rhonchi. Normal respiratory effort with no use of accessory muscles. Abdomen: Soft, bowel sounds present, nontender, nondistended. No hepatosplenomegaly or masses appreciated. Extremities: No clubbing, cyanosis, or edema. Skin: Normal temperature, poor turgor, and dry texture; no rash, ulcers, or subcutaneous nodules appreciated. Neurological: Cranial nerves grossly intact. Psychiatric: Normal mood and affect. Appears alert and oriented to person and place. Dementia at baseline. Objective Labs Result Diagrams: 02/05/19 05:18 02/05/19 05:18 Labs: Laboratory Results - last 24 hr 02/04/19 02/04/19 02/05/19 15:50 15:50 05:18 WBC 4.3 L 4.5 RBC 3.71 L 3.51 L Hgb 12.6 L 11.8 L Hct 38.1 L 35.8 L MCV 102.7 H 102.1 H MCH 33.9 33.7 MCHC 33.0 33.0 RDW 15.1 H 14.9 H Plt Count 78 L 77 L Neut % (Auto) 72.1 66.1 Lymph % (Auto) 14.2 L 17.6 L Mcpherson % (Auto) 10.4 11.8 Eos % (Auto) 2.0 3.2 Baso % (Auto) 1.3 1.3 Neut # (Auto) 3100 3000 Lymph # (Auto) 600 L 800 L Mcpherson # (Auto) 400 500 Eos # (Auto) 100 100 Baso # (Auto) 100 100 PT INR Sodium 144 Potassium 4.8 Chloride 109 H Carbon Dioxide 26 BUN 51 H Creatinine 2.50 H Estimated GFR 24.8 L BUN/Creatinine Ratio 20.4 Glucose 82 Calcium 9.0 Total Bilirubin 2.3 H AST 31 ALT 24 Alkaline Phosphatase 102 Total Protein 6.1 L Albumin 3.6 Globulin 2.5 Albumin/Globulin Ratio 1.4 02/05/19 02/05/19 05:18 05:18 WBC RBC Hgb Hct MCV MCH MCHC RDW Plt Count Neut % (Auto) Lymph % (Auto) Mcpherson % (Auto) Eos % (Auto) Baso % (Auto) Neut # (Auto) Lymph # (Auto) Mcpherson # (Auto) Eos # (Auto) Baso # (Auto) PT 15.6 H INR 1.3 Sodium 140 Potassium 4.3 Chloride 110 H Carbon Dioxide 26 BUN 46 H Creatinine 2.50 H Estimated GFR 24.8 L BUN/Creatinine Ratio 18.4 Glucose 101 Calcium 8.7 Total Bilirubin 2.3 H AST 21 ALT 20 Alkaline Phosphatase 82 Total Protein 5.6 L Albumin 3.2 L Globulin 2.4 Albumin/Globulin Ratio 1.3 Discharge Plan Discharge Plan Patient Disposition: Home Discharge comment: You are being discharged home. You were hospitalized due to weakness and a fall. You would benefit from outpatient physical and occupational therapy or home health physical and occupational therapy. Please follow-up with your primary care provider, Dr. Santacruz, at your scheduled appointment regarding your hospitalization. Discharge orders & Medications Prescriptions: Continued atorvastatin 80 mg Tablet 80 mg PO DAILY RF: 0 carvedilol 6.25 mg Tablet 6.25 mg PO BID RF: 0 citalopram 10 mg Tablet 10 mg PO DAILY RF: 0 lorazepam 0.5 mg Tablet 0.5 mg PO BID RF: 0 zolpidem 10 mg Tablet 10 mg PO BEDTIME RF: 0 Follow up/Referrals: Camilo Santacruz MD [Primary Care Provider] - 3-5 Days Diet/Activity/Treatments Diet: Low-fat, Low-sodium and Low-cholesterol Activity: Activity as tolerated with forward wheeled walker Discharge Data Primary Care Provider: Camilo Santacruz Attending Provider: Isabella Pinedo Admit Date/Time: 02/04/19 18:44 Discharges patient from system. Discharge Date/Time: 02/05/19 16:50 Quality VTE Deep Vein Thrombosis/Pulmonary Embolism Present on Admission: No
[2019-02-05 15:55] VITALS: BP 108/74; PULSE 64; RESP 18; TEMP 36.6; O2SAT 95
--- NOTE | 2019-02-05 17:19 | PC.NURSE ---
Pt dressed and in wheelchair when this field underwriter was asked by pt's primary RN to discharge patient as ordered. Pt's S.O. who also identifies herself as caregiver to patient present and reports planning to [facility] this [facility]. EBSCO discharge instructions for CHF provided to caregiver as well as all other discharge and follow up instructions. Questions answered as appropriate. IV left forearm removed intact for discharge. Caregiver reports all of pt's personal effects are accounted for. Pt left hospital with [employer] escort and caregiver via wheelchair in stable condition. Pt able to follow commands appropriately. Caregiver informs this field underwriter pt has low pain threshold. Pt does protest with removal of tape to left forearm iv site prior to removal. Utilized skin adhesive remover to facilitate this task. Pt's skin intact as iv is discontinued. Covered with folded 2 x 2 and coban to secure.
== END 2019-02-05 16:50 | disposition home or self-care (01) ==
LOC: ED 18:33 → AC 18:44
PROVIDERS: Nurse Practitioner Gerontology; Admitting Provider Internal Medicine; Emergency Provider Emergency Medicine; Family Provider Family Medicine; PCP Family Medicine; Visit Provider Internal Medicine
DX: S01.01XA Laceration without foreign body of scalp, initial encounter (principal); I50.9 Heart failure, unspecified; N17.9 Acute kidney failure, unspecified; W01.190A Fall on same level from slipping, tripping and stumbling with subsequent striking against furniture, initial encounter; Z91.81 History of falling; D69.6 Thrombocytopenia, unspecified; I25.5 Ischemic cardiomyopathy; F91.9 Conduct disorder, unspecified; Z87.820 Personal history of traumatic brain injury
CPT/HCPCS: 12002; 36415; 70450; 71045; 72125; 73502; 80053; 81003; 85025; 85610; 96374; 96376; 97116; 97161; 97165; 97535; 99283; 99285; G0378; J2060

== ENCOUNTER 2019-02-19 18:28 | Emergency (ER) | payer SELFPAY ==
[2019-02-19 18:30] VITALS: BP 125/74; PULSE 84; RESP 18; TEMP 36.4; O2SAT 100; BMI 25.5
--- NOTE | 2019-02-19 18:40 | DI.RAD.S_ITS ---
PROCEDURE: XR CHEST 1V INDICATIONS: eval for pulmonary edema TECHNIQUE: One view of the chest was acquired. COMPARISON: [facility], CR, XR CHEST 1V, 02/04/2019, 17:34. FINDINGS: Surgical changes and devices: None. Lungs and pleura: Lungs are abnormal with a mild interstitial prominence, consistent with mild pulmonary edema. This had appeared more prominent 02/04/19.. No pleural effusions or pneumothorax. Mediastinum: Mediastinal contours appear normal. Heart size is normal. Bones and chest wall: No suspicious bony lesions. Overlying soft tissues appear unremarkable. IMPRESSION: Mild diffuse pulmonary edema pattern but improved from 02/04/19. No pleural effusion seen. Dictated by: Terrell Robert M.D. on 02/19/2019 at 19:22 Approved by: Terrell Robert M.D. on 02/19/2019 at 19:23
--- NOTE | 2019-02-19 18:43 | ED_ITS ---
HPI - General Adult <Jamie Falk DO - Last Filed: 02/20/19 17:56> General Chief complaint: Shortness of Breath/Dyspnea Stated complaint: SWELLING OF LEGS Time Seen by Provider: 02/19/19 18:36 Source: patient and family Mode of arrival: Ambulatory Limitations: no limitations History of Present Illness HPI narrative: Patient is an 83-year-old male brought in by his daughter for evaluation of falls, lower extremity swelling and potential cellulitis. Patient was admitted earlier this month for similar symptoms. After spending only 1 night under an observation status was discharged the next day. Please see the inpatient and emergency department notes dated 02/04 through 02/05 for details. Apparently the patient has had a very difficult social situation. Social work has been involved. Who was reported that the patient has been having worsening swelling in his lower extremities since he has been discharged. Is unsure whether not the redness in the area has been worsening. He lives out on [facility]. Apparently the paramedics check on him 1 regular basis and they were c oncerned about the redness and potential infection in his lower extremities. His daughter who does not live on the [place] was the 1 who brought him in today. According to the notes he has had a history of a traumatic brain injury and has had issues with behavioral outbursts. Apparently this was evident during his last admission here to the hospital where he refused to have any specific care performed. Patient's only complaint was that he was having some pain in his lower extremities. He denies any chest pain or shortness of breath or abdominal pain. Does not know the medications that he is taking. Related Data Home Medications Medication Instructions Recorded Confirmed atorvastatin 80 mg PO DAILY 02/04/19 02/04/19 carvedilol 6.25 mg PO BID 02/04/19 02/04/19 citalopram 10 mg PO DAILY 02/04/19 02/04/19 lorazepam 0.5 mg PO BID 02/04/19 02/04/19 zolpidem 10 mg PO BEDTIME 02/04/19 02/04/19 Previous Rx's Medication Instructions Recorded furosemide [Lasix] 40 mg PO DAILY #14 tab 02/20/19 Allergies Allergy/AdvReac Type Severity Reaction Status Date / Time citalopram AdvReac Intermediate Verified 02/19/19 18:58 megestrol [From Megace] AdvReac Intermediate Diarrhea Verified 02/19/19 18:58 Review of Systems <Jamie Falk DO - Last Filed: 02/20/19 17:56> Constitutional Constitutional: Denies fever(s), Reports frequent falls and Denies headache(s) ENT Ears, Nose, Mouth, and Throat: Denies headache(s) Cardiovascular Cardiovascular: Denies chest pain and Denies dyspnea Respiratory Respiratory: Denies cough and Denies dyspnea Gastrointestinal Gastrointestinal: Denies abdominal pain, Denies change in stool character, Denies nausea and Denies vomiting Genitourinary Genitourinary: Denies dysuria Musculoskeletal Comments: Leg pain Integumentary/Breasts Comments: Swelling and redness to lower extremities Neurologic Neurologic: Denies behavioral changes (According to family), Reports frequent falls and Denies headache(s) Psychiatric Psychiatric: Denies behavioral changes (According to family) Hematologic/Lymphatic Hematologic/Lymphatic: Denies easy bleeding and Denies easy bruising Patient History <DO Tomás Murillo Last Filed: 02/20/19 17:56> Medical History Acute renal failure (Inactive) Cognitive impairment (Inactive) Congestive heart failure (Inactive) TBI (traumatic brain injury) (Acute) Social History details: States he is and partner confirms a somewhat but then states she is household members: significant other Smoking Status: Smoker, status unknown substance use type: does not use Smoking Status: Smoker, status unknown Substance Use Type: unknown Exam <DO Tomás Murillo Last Filed: 02/20/19 17:56> Initial Vital Signs Initial Vital Signs: Vital Signs Temperature 97.5 F L 02/19/19 18:30 Pulse Rate 84 02/19/19 18:30 Respiratory Rate 18 02/19/19 18:30 Blood Pressure 125/74 02/19/19 18:30 Pulse Oximetry 100 02/19/19 18:30 Const General: No in distress Orientation: alert, awake, oriented x3, oriented to person, oriented to place and oriented to time Limitations: mental status not altered HENMT Head: normal to inspection and normocephalic Resp Effort & Inspection: normal respiratory effort Auscultation: clear to auscultation bilaterally Cardio Rate: regular rate Rhythm: regular rhythm GI Inspection: non-distended Palpation: soft Skin Other: Patient with swelling and redness to bilateral lower extremities from his toes to just below his knees. There are no blistering. 2+ pitting edema. Neuro General: alert, awake and oriented x3 Cognition: normal cognition Extrem General: edema Psych Appearance: grossly normal <Sara Pena DO - Last Filed: 02/20/19 12:01> Initial Vital Signs Initial Vital Signs: Vital Signs Temperature 97.5 F L 02/19/19 18:30 Pulse Rate 84 02/19/19 18:30 Respiratory Rate 18 02/19/19 18:30 Blood Pressure 125/74 02/19/19 18:30 Pulse Oximetry 100 02/19/19 18:30 Course <Jamie Falk DO - Last Filed: 02/20/19 17:56> Orders Ordered: Discontinued Medications Hydrocodone Bitart/Acetaminophen ([place] 5/325) 1 tab PO NOW ONE Stop: 02/19/19 22:55 Last Admin: 02/19/19 23:10 Dose: Not Given Documented by: CARMELITA Furosemide (Lasix) 60 mg IV NOW ONE Stop: 02/19/19 20:25 Last Admin: 02/19/19 20:37 Dose: 60 mg Documented by: RUDOLPHLE Lorazepam (Ativan) 1 mg PO NOW ONE Stop: 02/19/19 23:27 Last Admin: 02/19/19 23:32 Dose: 1 mg Documented by: CARMELITA Vital Signs Vital signs: Vital Signs - 8 hr 02/20/19 06:53 02/20/19 08:35 Temperature 98.5 F Pulse Rate 76 78 Respiratory Rate 20 20 Blood Pressure [Left Arm] 124/77 125/83 Pulse Oximetry 96 97 <Sara Pena DO - Last Filed: 02/20/19 12:01> Orders Ordered: Discontinued Medications Hydrocodone Bitart/Acetaminophen ([place] 5/325) 1 tab PO NOW ONE Stop: 02/19/19 22:55 Last Admin: 02/19/19 23:10 Dose: Not Given Documented by: CARMELITA Furosemide (Lasix) 60 mg IV NOW ONE Stop: 02/19/19 20:25 Last Admin: 02/19/19 20:37 Dose: 60 mg Documented by: RUDOLPHLE Lorazepam (Ativan) 1 mg PO NOW ONE Stop: 02/19/19 23:27 Last Admin: 02/19/19 23:32 Dose: 1 mg Documented by: CARMELITA Vital Signs Vital signs: Vital Signs - 8 hr 02/20/19 06:53 02/20/19 08:35 Temperature 98.5 F Pulse Rate 76 78 Respiratory Rate 20 20 Blood Pressure [Left Arm] 124/77 125/83 Pulse Oximetry 96 97 Medical Decision Making <Jamie Falk DO - Last Filed: 02/20/19 17:56> Medical Records Medical records reviewed: Yes I reviewed the patient's medical records. Lab Data Lab results reviewed: Yes I reviewed the patient's lab results. Result diagrams: 02/19/19 19:00 02/19/19 19:00 Labs: Lab Results 02/19/19 02/19/19 02/19/19 Range/Units 19:00 19:00 19:00 WBC 5.2 (4.5-11.0) X10^3/uL RBC 3.85 L (4.5-5.9) X10^6/uL Hgb 13.1 L (13.5-17.5) g/dL Hct 39.0 L (41-53) % MCV 101.3 H (80-100) fL MCH 34.0 (26-34) PG MCHC 33.5 (30-36) % RDW 16.0 H (11.6-14.8) % Plt Count 136 L (150-400) X10^3/uL Neut % (Auto) 62.6 (50-75) % Lymph % (Auto) 15.8 L (25-40) % [place] % (Auto) 17.7 H (3-14) % Eos % (Auto) 2.5 (2-4) % Baso % (Auto) 1.4 (0-2) % Neut # (Auto) 3300 (0218-1588) /uL Lymph # (Auto) 800 L (4749-4566) /uL [place] # (Auto) 900 (0-900) /uL Eos # (Auto) 100 (0-450) /uL Baso # (Auto) 100 (0-100) /uL Sodium 143 (137-145) mmol/L Potassium 5.1 (3.4-5.1) mmol/L Chloride 102 (98-107) mmol/L Carbon Dioxide 29 (22-32) mmol/L BUN 95 H (9-20) mg/dL Creatinine 2.30 H (0.66-1.25) mg/dL Estimated GFR 27.3 L (>60) mL/min BUN/Creatinine Ratio 41.3 H (6-22) Glucose 90 (80-110) mg/dL Lactate (0.7-2.1) mmol/L Calcium 9.6 (8.4-10.2) mg/dL Total Bilirubin 1.6 H (0.2-1.3) mg/dL AST 36 (17-59) IU/L ALT 27 (<50) IU/L Alkaline Phosphatase 118 (38-126) U/L Troponin I (0.01-0.034) ng/mL B-Natriuretic Peptide 649 H (<100) Total Protein 7.2 (6.3-8.2) g/dL Albumin 4.3 (3.5-5.0) g/dL Globulin 2.9 (1.7-4.1) g/dL Albumin/Globulin Ratio 1.5 (1.0-2.8) Lipase 313 H (23-300) U/L Procalcitonin 0.10 (<0.5) ng/mL Ethyl Alcohol < 10 ( - 10) mg/dL 02/19/19 02/19/19 02/19/19 Range/Units 19:00 19:09 21:20 WBC (4.5-11.0) X10^3/uL RBC (4.5-5.9) X10^6/uL Hgb (13.5-17.5) g/dL Hct (41-53) % MCV (80-100) fL MCH (26-34) PG MCHC (30-36) % RDW (11.6-14.8) % Plt Count (150-400) X10^3/uL Neut % (Auto) (50-75) % Lymph % (Auto) (25-40) % [place] % (Auto) (3-14) % Eos % (Auto) (2-4) % Baso % (Auto) (0-2) % Neut # (Auto) (1792-4114) /uL Lymph # (Auto) (9435-8213) /uL [place] # (Auto) (0-900) /uL Eos # (Auto) (0-450) /uL Baso # (Auto) (0-100) /uL Sodium (137-145) mmol/L Potassium (3.4-5.1) mmol/L Chloride (98-107) mmol/L Carbon Dioxide (22-32) mmol/L BUN (9-20) mg/dL Creatinine (0.66-1.25) mg/dL Estimated GFR (>60) mL/min BUN/Creatinine Ratio (6-22) Glucose (80-110) mg/dL Lactate 2.5 H 0.9 (0.7-2.1) mmol/L Calcium (8.4-10.2) mg/dL Total Bilirubin (0.2-1.3) mg/dL AST (17-59) IU/L ALT (<50) IU/L Alkaline Phosphatase (38-126) U/L Troponin I 0.029 (0.01-0.034) ng/mL B-Natriuretic Peptide (<100) Total Protein (6.3-8.2) g/dL Albumin (3.5-5.0) g/dL Globulin (1.7-4.1) g/dL Albumin/Globulin Ratio (1.0-2.8) Lipase (23-300) U/L Procalcitonin (<0.5) ng/mL Ethyl Alcohol ( - 10) mg/dL Urine Dip Bedside Urine Glucose Negative Bedside Urine Bilirubin - Negative Bedside Urine Ketone - Negative Urine Specific Wideman 1.010 Bedside Urine Occult Blood - Negative Bedside Urine pH 7.5 Bedside Urine Protein - Negative Bedside Urine Urobilinogen - Negative Bedside Urine Nitrite - Negative Bedside Urine Leukocytes - Negative Esterase Point of care testing: Urine Dip Bedside Urine Glucose Negative Bedside Urine Bilirubin - Negative Bedside Urine Ketone - Negative Urine Specific Wideman 1.010 Bedside Urine Occult Blood - Negative Bedside Urine pH 7.5 Bedside Urine Protein - Negative Bedside Urine Urobilinogen - Negative Bedside Urine Nitrite - Negative Bedside Urine Leukocytes - Negative Esterase Imaging Data Chest x-ray: Radiologist's impression: [address] [address] XRay Report Signed Patient: Michele Hays DMR#: [id number] : 6Acct:[id number] Age/Sex: 83 / MDate of Service: 02/19/19 Loc: ED Accession Number: [id number] Procedure: XR chest 1V Ordering Provider: Jamie Falk D.O. PROCEDURE: XR CHEST 1V INDICATIONS: eval for pulmonary edema TECHNIQUE: One view of the chest was acquired. COMPARISON: [facility], , XR CHEST 1V, 02/04/2019, 17:34. FINDINGS: Surgical changes and devices: None. Lungs and pleura: Lungs are abnormal with a mild interstitial prominence, consistent with mild pulmonary edema. This had appeared more prominent 02/04/19.. No pleural effusions or pneumothorax. Mediastinum: Mediastinal contours appear normal. Heart size is normal. Bones and chest wall: No suspicious bony lesions. Overlying soft tissues appear unremarkable. IMPRESSION: Mild diffuse pulmonary edema pattern but improved from 02/04/19. No pleural effusion seen. Dictated by: Terrell Robert M.D. on 02/19/2019 at 19:22 Approved by: Terrell Robert M.D. on 02/19/2019 at 19:23 Venous US: Radiologist's impression: [place] [address] Ultrasound Report Signed Patient: Michele Hays DMR#: [id number] : 6Acct:[id number] Age/Sex: 83 / MDate of Service: 02/19/19 Loc: ED Accession Number: [id number] Procedure: US periph venous low extrem bi Ordering Provider: Jamie Falk D.O. PROCEDURE: US PERIPH VENOUS LOW EXTREM BI INDICATIONS: eval for DVT TECHNIQUE: Real-time imaging, as well as color and pulse Doppler interrogation, were performed of the deep veins of both legs from the inguinal ligament to the popliteal fossa. COMPARISON: None. FINDINGS: Right: The common femoral, femoral and popliteal veins are normally compressible, and free of intraluminal thrombus. Color and pulse Doppler demonstrate normal phasic intravascular flow. There is normal augmentation response to distal compression maneuver. Left: The common femoral, femoral and popliteal veins are normally compressible, and free of intraluminal thrombus. Color and pulse Doppler demonstrate normal phasic intravascular flow. There is normal augmentation response to distal compression maneuver. IMPRESSION: No DVT found bilaterally. Dictated by: Terrell Robert M.D. on 02/19/2019 at 20:46 Approved by: Terrell Robert M.D. on 02/19/2019 at 20:47 ECG Data Attestation: I personally reviewed and interpreted this ECG as follows: Prior ECG tracings: not available for review Interpretation: Sinus rhythm Ventricular rate is 75 Normal QRS Normal QTC Nonspecific ST T wave changes MDM Narrative Medical decision making narrative: Patient was alert and oriented x3. GCS of 15. In my opinion has capacity to make decisions. His bilateral lower extremities are red and swollen however I feel that the redness is more related to venous stasis issues rather than cellulitis. This is supported by the fact that his procalcitonin was unremarkable and his lack of leukocytosis and a lack of a fever. Bilateral lower extremity ultrasounds were negative for DVTs. He was given Lasix here in the emergency department with a good result of diuresis. The rest of the patient's labs unremarkable as well. Denies any chest pain or shortness of breath. Review the patient's prior hospital admission shows that he was relatively uncooperative with much of the interventions. He has been calm since being in our emergency department has allowed us to do multiple testing on him. He has been able to stand at bedside. Has walked around his bed. Has been able to urinate on his own. Social work has been involved in the situation. Unfortunately I do not have an admittable diagnosis for the patient. He does have a unfortunate social situation at home. His daughter has been at bedside. He has 2 sons who are flying in the next 48 hours. Given his social situation the patient will sleep in the emergency department this evening. His daughter will return tomorrow morning with anticipation of discharging home with his daughter. Care turned over to Dr. Pena at change of shift to follow up on disposition. <Sara Pena, - Last Filed: 02/20/19 12:01> Lab Data Lab results reviewed: Yes I reviewed the patient's lab results. Labs: Lab Results 02/19/19 02/19/19 02/19/19 Range/Units 19:00 19:00 19:00 WBC 5.2 (4.5-11.0) X10^3/uL RBC 3.85 L (4.5-5.9) X10^6/uL Hgb 13.1 L (13.5-17.5) g/dL Hct 39.0 L (41-53) % MCV 101.3 H (80-100) fL MCH 34.0 (26-34) PG MCHC 33.5 (30-36) % RDW 16.0 H (11.6-14.8) % Plt Count 136 L (150-400) X10^3/uL Neut % (Auto) 62.6 (50-75) % Lymph % (Auto) 15.8 L (25-40) % [place] % (Auto) 17.7 H (3-14) % Eos % (Auto) 2.5 (2-4) % Baso % (Auto) 1.4 (0-2) % Neut # (Auto) 3300 (4542-8511) /uL Lymph # (Auto) 800 L (5490-8815) /uL [place] # (Auto) 900 (0-900) /uL Eos # (Auto) 100 (0-450) /uL Baso # (Auto) 100 (0-100) /uL Sodium 143 (137-145) mmol/L Potassium 5.1 (3.4-5.1) mmol/L Chloride 102 (98-107) mmol/L Carbon Dioxide 29 (22-32) mmol/L BUN 95 H (9-20) mg/dL Creatinine 2.30 H (0.66-1.25) mg/dL Estimated GFR 27.3 L (>60) mL/min BUN/Creatinine Ratio 41.3 H (6-22) Glucose 90 (80-110) mg/dL Lactate (0.7-2.1) mmol/L Calcium 9.6 (8.4-10.2) mg/dL Total Bilirubin 1.6 H (0.2-1.3) mg/dL AST 36 (17-59) IU/L ALT 27 (<50) IU/L Alkaline Phosphatase 118 (38-126) U/L Troponin I (0.01-0.034) ng/mL B-Natriuretic Peptide 649 H (<100) Total Protein 7.2 (6.3-8.2) g/dL Albumin 4.3 (3.5-5.0) g/dL Globulin 2.9 (1.7-4.1) g/dL Albumin/Globulin Ratio 1.5 (1.0-2.8) Lipase 313 H (23-300) U/L Procalcitonin 0.10 (<0.5) ng/mL Ethyl Alcohol < 10 ( - 10) mg/dL 02/19/19 02/19/19 02/19/19 Range/Units 19:00 19:09 21:20 WBC (4.5-11.0) X10^3/uL RBC (4.5-5.9) X10^6/uL Hgb (13.5-17.5) g/dL Hct (41-53) % MCV (80-100) fL MCH (26-34) PG MCHC (30-36) % RDW (11.6-14.8) % Plt Count (150-400) X10^3/uL Neut % (Auto) (50-75) % Lymph % (Auto) (25-40) % [place] % (Auto) (3-14) % Eos % (Auto) (2-4) % Baso % (Auto) (0-2) % Neut # (Auto) (8781-5340) /uL Lymph # (Auto) (1829-8645) /uL [place] # (Auto) (0-900) /uL Eos # (Auto) (0-450) /uL Baso # (Auto) (0-100) /uL Sodium (137-145) mmol/L Potassium (3.4-5.1) mmol/L Chloride (98-107) mmol/L Carbon Dioxide (22-32) mmol/L BUN (9-20) mg/dL Creatinine (0.66-1.25) mg/dL Estimated GFR (>60) mL/min BUN/Creatinine Ratio (6-22) Glucose (80-110) mg/dL Lactate 2.5 H 0.9 (0.7-2.1) mmol/L Calcium (8.4-10.2) mg/dL Total Bilirubin (0.2-1.3) mg/dL AST (17-59) IU/L ALT (<50) IU/L Alkaline Phosphatase (38-126) U/L Troponin I 0.029 (0.01-0.034) ng/mL B-Natriuretic Peptide (<100) Total Protein (6.3-8.2) g/dL Albumin (3.5-5.0) g/dL Globulin (1.7-4.1) g/dL Albumin/Globulin Ratio (1.0-2.8) Lipase (23-300) U/L Procalcitonin (<0.5) ng/mL Ethyl Alcohol ( - 10) mg/dL Urine Dip Bedside Urine Glucose Negative Bedside Urine Bilirubin - Negative Bedside Urine Ketone - Negative Urine Specific Wideman 1.010 Bedside Urine Occult Blood - Negative Bedside Urine pH 7.5 Bedside Urine Protein - Negative Bedside Urine Urobilinogen - Negative Bedside Urine Nitrite - Negative Bedside Urine Leukocytes - Negative Esterase Point of care testing: Urine Dip Bedside Urine Glucose Negative Bedside Urine Bilirubin - Negative Bedside Urine Ketone - Negative Urine Specific Wideman 1.010 Bedside Urine Occult Blood - Negative Bedside Urine pH 7.5 Bedside Urine Protein - Negative Bedside Urine Urobilinogen - Negative Bedside Urine Nitrite - Negative Bedside Urine Leukocytes - Negative Esterase Imaging Data Chest x-ray: Radiologist's impression: Michele Hays 83 M [address] [address] XRay Report Signed Patient: Michele Hays [facility]#: [id number] : 1935cct:[id number] Age/Sex: 83 / MDate of Service: 02/19/19 Loc: ED Accession Number: [id number] Procedure: XR chest 1V Ordering Provider: Jamie Falk D.O. PROCEDURE: XR CHEST 1V INDICATIONS: eval for pulmonary edema TECHNIQUE: One view of the chest was acquired. COMPARISON: [facility], , XR CHEST 1V, 02/04/2019, 17:34. FINDINGS: Surgical changes and devices: None. Lungs and pleura: Lungs are abnormal with a mild interstitial prominence, consistent with mild pulmonary edema. This had appeared more prominent 02/04/19.. No pleural effusions or pneumothorax. Mediastinum: Mediastinal contours appear normal. Heart size is normal. Bones and chest wall: No suspicious bony lesions. Overlying soft tissues appear unremarkable. IMPRESSION: Mild diffuse pulmonary edema pattern but improved from 02/04/19. No pleural effusion seen. Dictated by: Terrell Robert M.D. on 02/19/2019 at 19:22 Approved by: Terrell Robert M.D. on 02/19/2019 at 19:23 Venous US: Radiologist's impression: [address] [address] Ultrasound Report Signed Patient: Michele Hays [facility]#: [id number] : 1936Acct:[id number] Age/Sex: 83 / MDate of Service: 02/19/19 Loc: ED Accession Number: [id number] Procedure: US periph venous low extrem bi Ordering Provider: Jamie Falk D.O. PROCEDURE: US PERIPH VENOUS LOW EXTREM BI INDICATIONS: eval for DVT TECHNIQUE: Real-time imaging, as well as color and pulse Doppler interrogation, were performed of the deep veins of both legs from the inguinal ligament to the popliteal fossa. COMPARISON: None. FINDINGS: Right: The common femoral, femoral and popliteal veins are normally compressible, and free of intraluminal thrombus. Color and pulse Doppler demonstrate normal phasic intravascular flow. There is normal augmentation response to distal compression maneuver. Left: The common femoral, femoral and popliteal veins are normally compressible, and free of intraluminal thrombus. Color and pulse Doppler demonstrate normal phasic intravascular flow. There is normal augmentation response to distal compression maneuver. IMPRESSION: No DVT found bilaterally. Dictated by: Terrell Robert M.D. on 02/19/2019 at 20:46 Approved by: Terrell Robert M.D. on 02/19/2019 at 20:47 MDM Narrative Medical decision making narrative: Patient was signed out by Dr. Falk to myself while awaiting his daughter to return. Patient's daughter was here last night but plan was for her to take him to [facility] after discharge and there were no ferries till today so they watched him in ED overnight. Labs show anemia that appears stable and slightly improved with no elevation in white count. Electrolytes show creatinine of 2.3 but appears stable at baseline. Lecture lytes otherwise normal show lactate was 2.5 but a repeat several hours later was 0.9. Total bili was 1.6 with otherwise normal LFTs. Troponin was negative range at 0.029 with no acute EKG changes. BNP is 649 with no priors for comparison. Lipase was 313 with a negative procalcitonin. Patient had chest x-ray which shows maybe some pulmonary edema but improved from last chest x-ray and DVT bilaterally was negative. Patient has what sounds like more chronic venous stasis changes on his lower extremities with swelling. Dr. Falk gave a dose of Lasix as well as short-term prescription which seems appropriate based on patients labs. Patient was seen by myself and I agree with exam findings and diagnosis. Patient appears to have chronic venous stasis changes that do not appear infected. He is alert and oriented. Patient was clear that he wanted to be discharged. Patient was pleasant overnight per staff and this morning. He is up ambulated at the bedside without any assistance. Patient does have chronic urinary incontinence. Patient's daughter arrived and patient was discharged into her care. Discharge Plan Departure Patient Disposition: Home Clinical Impression: Bilateral lower extremity edema Discharge Date/Time: 02/20/19 09:10 Instructions: DI for Peripheral Edema -- Bilateral Activity Restrictions/Additional Instructions: I do recommend that you talk with your primary doctor about potential other living situations. The redness on your lower legs is most likely related to the swelling and not an infection. I recommend that you start taking the Lasix that you're given a prescription for as directed. Prescriptions: New furosemide [Lasix] 40 mg tablet 40 mg PO DAILY Qty: 14 RF: 0 No Action atorvastatin 80 mg Tablet 80 mg PO DAILY RF: 0 carvedilol 6.25 mg Tablet 6.25 mg PO BID RF: 0 citalopram 10 mg Tablet 10 mg PO DAILY RF: 0 lorazepam 0.5 mg Tablet 0.5 mg PO BID RF: 0 zolpidem 10 mg Tablet 10 mg PO BEDTIME RF: 0 Referrals: Camilo Santacruz MD [Primary Care Provider] -
--- NOTE | 2019-02-19 19:13 | DI.US.S_ITS ---
PROCEDURE: US PERIPH VENOUS LOW EXTREM BI INDICATIONS: eval for DVT TECHNIQUE: Real-time imaging, as well as color and pulse Doppler interrogation, were performed of the deep veins of both legs from the inguinal ligament to the popliteal fossa. COMPARISON: None. FINDINGS: Right: The common femoral, femoral and popliteal veins are normally compressible, and free of intraluminal thrombus. Color and pulse Doppler demonstrate normal phasic intravascular flow. There is normal augmentation response to distal compression maneuver. Left: The common femoral, femoral and popliteal veins are normally compressible, and free of intraluminal thrombus. Color and pulse Doppler demonstrate normal phasic intravascular flow. There is normal augmentation response to distal compression maneuver. IMPRESSION: No DVT found bilaterally. Dictated by: Terrell Robert M.D. on 02/19/2019 at 20:46 Approved by: Terrell Robert M.D. on 02/19/2019 at 20:47
[2019-02-19 19:14] LABS: Add Manual Diff / Slide Review NO; Basophils Absolute Auto 100 /uL (0-100); Basophils Percent Auto 1.4 % (0-2); Eosinophils Absolute Auto 100 /uL (0-450); Eosinophils Percent Auto 2.5 % (2-4); Hemoglobin 13.1 g/dL (13.5-17.5); Lymphocytes Absolute Auto 800 /uL (1100-4500); Lymphocytes Percent Auto 15.8 % (25-40); Mean Corpuscular HGB Conc 33.5 % (30-36); Mean Corpuscular Volume 101.3 fL (80-100); Monocytes Absolute Auto 900 /uL (0-900); Monocytes Percent Auto 17.7 % (3-14); Neutrophils Absolute Auto 3300 /uL (1500-7000); Neutrophils Percent Auto 62.6 % (50-75); Platelet Count 136 X10^3/uL (150-400); Red Blood Cell Count 3.85 X10^6/uL (4.5-5.9); White Blood Cell Count 5.2 X10^3/uL (4.5-11.0)
[2019-02-19 19:24] LABS: Lactate (Lactic Acid) 2.5 mmol/L (0.7-2.1)
[2019-02-19 19:25] LABS: Alanine Aminotransferase 27 IU/L (<50); Albumin 4.3 g/dL (3.5-5.0); Albumin Globulin Ratio 1.5 (1.0-2.8); Alkaline Phosphatase 118 U/L (38-126); Aspartate Aminotransferase 36 IU/L (17-59); BUN Creatinine Ratio 41.3 (6-22); Bilirubin Total 1.6 mg/dL (0.2-1.3); Blood Urea Nitrogen 95 mg/dL (9-20); Calcium 9.6 mg/dL (8.4-10.2); Carbon Dioxide 29 mmol/L (22-32); Chloride 102 mmol/L (98-107); Estimated Glomerular Filt Rate 27.3 mL/min (>60); Ethanol (ETOH) < 10 mg/dL; Globulin 2.9 g/dL (1.7-4.1); Glucose 90 mg/dL (80-110); HEMOLYSIS < 15 (0-50); Lipase 313 U/L (23-300); Potassium 5.1 mmol/L (3.4-5.1); Sodium 143 mmol/L (137-145); Total Protein 7.2 g/dL (6.3-8.2)
[2019-02-19 19:30] LABS: B Type Natriuretic Peptide 649 (<100)
[2019-02-19 19:41] LABS: Troponin I 0.029 ng/mL (0.01-0.034)
--- NOTE | 2019-02-19 19:44 | PC.NURSE ---
Pt arrived POV from [place] with daughters. AAOx3. Reports increasing B/L LE leg swelling. B/L LE's appear erythematic and 2+ pitting edema, some mild weeping. Pt denies pain. Has h/o CHF and was recently told to double his dose of diuretics. Unable to care for himself at home and Crystal SHEIKH in ED and consulting. Daughter reports that he has a girlfriend who left him last week and he most likely isnt taking care of himself adequately. Placed on cardiac monitoring, NSR 80's, BP 118/75. Lungs clear anteriorly, mostly clear posteriorly with mild fine crackles at bases R > L. 100% RA. Concern for LE DVT and US in room for exam. 20G PIV placed in L AC and labs including lactate and BC x 2 drawn. EKG obtained. UA obtained and clean. Awaiting MD assessment and further orders at this time.
[2019-02-19 19:45] VITALS: BP 118/75; PULSE 79; RESP 21; O2SAT 100
--- NOTE | 2019-02-19 20:14 | PC.NURSE ---
Pt screaming Hello from inside room. Dr Falk and this RN at bedside. Pt yelling can you get this wires off me, I'm freezing and attempting to get out of bed. Per Dr Falk, pt can be taken off of cardiac monitoring. Removed. Pt assisted back into bed and HOB elevated and bed trended. pt wrapped in warm blankets. Pt urinating with urinal often clear yellow. 700mL output within 1.5 hours. No diuretics have been given thus far. Pt appears more comfortable. Daughter at bedside.
[2019-02-19] MEDS: FUROSEMIDE 100 MG/10 ML VIAL 60 MG IV (20:37)
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
--- NOTE | 2019-02-19 21:04 | PC.NURSE ---
Pt moved to rm 6 to be closer to the RN station. Boarding down in the ED. placed on inpatient bed for comfort. given warm blankets. urinal given. additional 400 mL output.
[2019-02-19 21:09] LABS: Reflexed Lactate in 2 Hours Y
[2019-02-19 21:36] LABS: Lactate 2HR (Lactic Acid Rflx) 0.9 mmol/L (0.7-2.1)
--- NOTE | 2019-02-19 23:27 | PC.NURSE ---
Pt moaning in room. asking for cell phone. provided for him. asking to call Dr Santacruz. Oriented pt that it is midnight and we cannot call. Pt lying in urine and refusing nurses to change him. Swatting his hands at nurses to get away from him. Yelling, would you please just stop this phone call is my life right now. Advised we will come back. Hear him on the phone with Rain his daughter.
[2019-02-19] MEDS: LORazepam 0.5 MG TABLET 1 MG PO (23:32)
[2019-02-19 23:38] VITALS: BP 119/59; PULSE 81; RESP 14; O2SAT 95
--- NOTE | 2019-02-20 02:00 | PC.NURSE ---
patient under radiant warmer along with fresh warm blankets. provider aware.
--- NOTE | 2019-02-20 02:00 | PC.NURSE ---
patient up and out of bed with no clothes on. when asked why he was out of bed he states I am putting some clothes on because its cold. patient started urinating while standing up and asked for a urinal. patient given a urinal to use. patients bottom, scrotum and legs cleaned with wipes before getting back into the bed. patient given a fresh gown, socks and warm blankets. patient given the call lazar and told not to get up without calling for help. provider aware.
--- NOTE | 2019-02-20 04:15 | PC.NURSE ---
patient sitting up in bed trying to put his gown back on. patient helped putting his gown back and repositioned in bed. radiant warmer turned back on per patient request. call light at bedside. provider aware and no new orders at this time.
[2019-02-20 06:53] VITALS: BP 124/77; PULSE 76; RESP 20; O2SAT 96
--- NOTE | 2019-02-20 06:53 | PC.NURSE ---
Awakened easily for vital signs,voided 300 ml in urinal.alert,co-operative.clean and dry.radiant warmer turned on per his request.
[2019-02-20 08:35] VITALS: BP 125/83; PULSE 78; RESP 20; TEMP 36.9; O2SAT 97
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
== END 2019-02-20 09:10 | disposition home or self-care (01) ==
PROVIDERS: Emergency Provider Emergency Medicine; Family Provider Family Medicine; PCP Family Medicine
DX: R60.0 Localized edema (principal)
CPT/HCPCS: 36415; 71045; 80053; 80320; 81003; 83605; 83690; 83880; 84145; 84484; 85025; 87040; 93005; 93970; 96374; 99284; J1940